=== PATIENT | female | born 1950 | race Caucasian/White ===

== ENCOUNTER → 2019-06-07 10:26 | Outpatient (CLI) | payer MEDICARE, OTHER, SELFPAY ==
--- NOTE | 2019-06-07 | DI.MG.S_ITS ---
BILATERAL DIGITAL SCREENING MAMMOGRAM 3D/2D WITH CAD: 06/07/2019 CLINICAL: Routine screening. Family history of breast cancer. Comparison is made to exams dated: 06/10/2017 mammogram, 03/10/2016 mammogram - [facility], and 03/13/2015 mammogram - [facility]. The tissue of both breasts is extremely dense, which lowers the sensitivity of mammography. Current study was also evaluated with a Computer Aided Detection (CAD) system. No significant masses, calcifications, or other findings are seen in either breast. There has been no significant interval change. IMPRESSION: NEGATIVE There is no mammographic evidence of malignancy. A 1 year screening mammogram is recommended. This exam was interpreted at Station ID: [id number]. NOTE: For mammograms, a report in lay terms will be sent to the patient. Approximately 15% of breast malignancies will not be visualized mammographically. In the management of a palpable breast mass, a negative mammogram must not discourage biopsy of a clinically suspicious lesion. Electronically Signed By: Anirudh william/jaimie:06/07/2019 17:42:08 letter sent: Normal Exam ACR BI-RADS Category 1: Negative [id number]
--- NOTE | 2019-06-07 | DI.RAD.S_ITS ---
PROCEDURE: XR CERVICAL SPINE 2V OR 3V INDICATIONS: PARESTHESIA OF BOTH HANDS TECHNIQUE: 4 view(s) of the cervical spine were acquired. COMPARISON: None. FINDINGS: Bones: No fractures or dislocations to the C7 level. The lateral masses of C1 appear intact on the odontoid view. No suspicious bony lesions. Straightening of the normal lordotic curvature. Multilevel degenerative endplate sclerosis and spurring. Diffuse facet arthropathy. Severe narrowing of the C4-C5 and C5-C6, C6-C7 disc spaces. Soft tissues: No prevertebral soft tissue swelling. IMPRESSION: Severe cervical spondylosis and facet arthropathy as above. Straightening of the normal lordotic curvature. Dictated by: Sami Nogueira M.D. on 06/07/2019 at 13:05 Approved by: Sami Nogueira M.D. on 06/07/2019 at 13:28
== END ==
PROVIDERS: Family Provider Orthopaedic Surgery; PCP Family Medicine; Visit Provider Family Medicine
DX: Z12.31 Encounter for screening mammogram for malignant neoplasm of breast (principal); Z80.3 Family history of malignant neoplasm of breast; M47.812 Spondylosis without myelopathy or radiculopathy, cervical region; M79.641 Pain in right hand; M79.642 Pain in left hand; R20.2 Paresthesia of skin
CPT/HCPCS: 72040; 77063; 77067

== ENCOUNTER → 2019-06-22 10:21 | Outpatient (CLI) | payer MEDICARE, OTHER, SELFPAY ==
--- NOTE | 2019-06-22 | DI.MRI.S_ITS ---
PROCEDURE: MR CERVICAL SPINE WO CON INDICATIONS: PAIN IN RIGHT HAND TECHNIQUE: Noncontrast sagittal T1 spin echo and T2 fast spin echo, sagittal STIR, foraminal oblique sagittal T2 fast spin echo, and axial gradient echo or T2 fast spin echo through the cervical spine. COMPARISON: [facility], CR, XR CERVICAL SPINE 2V OR 3V, 06/07/2019, 10:37. FINDINGS: Image quality: Partially degraded by motion artifact. Alignment and Curvature: There is loss of normal cervical lordosis. There is mild kyphosis at C4-C6. There is mild grade 1 retrolisthesis of C5 on C6 and C6 on C7. Bone Marrow: Marrow demonstrates normal overall signal. Mild reactive signal within the endplates adjacent to the C4-C5, C5-C6, and C6-C7 intervertebral discs. Spinal Cord: Visualized spinal cord has normal size and signal. No cerebellar tonsillar herniation. Paraspinous Soft Tissues: No paravertebral masses. Prevertebral soft tissues are normal in thickness. C2-C3: Moderate disc desiccation. Bilateral facet hypertrophy. Mild canal stenosis. Mild bilateral foraminal stenosis. C3-C4: Moderate disc desiccation. Mild diffuse disc bulge. Mild facet and uncovertebral hypertrophy bilaterally. Mild canal stenosis. Moderate bilateral foraminal stenosis. C4-C5: Moderate disc height loss and desiccation. Moderate diffuse disc bulge/osteophyte. Moderate facet and uncovertebral hypertrophy bilaterally. Severe canal stenosis. Mild cord flattening. Moderate right and severe left foraminal stenosis. Left C5 nerve root compression. C5-C6: Moderate disc height loss and desiccation. Moderate diffuse disc bulge/osteophyte. Moderate facet and uncovertebral hypertrophy bilaterally. Severe canal stenosis. Mild cord flattening. Severe bilateral foraminal stenosis with bilateral C6 nerve root compression. C6-C7: Moderate disc height loss and desiccation. Moderate diffuse disc bulge. Moderate facet and uncovertebral hypertrophy bilaterally. Moderate canal stenosis. Severe left and moderate right foraminal stenosis. Left C7 nerve root compression. C7-T1: Mild disc height loss and desiccation. Mild diffuse disc bulge. Mild facet and uncovertebral hypertrophy bilaterally. Mild canal stenosis. Moderate left and mild right foraminal stenosis. IMPRESSION: 1. Multilevel degenerative disc and facet disease, as well as uncovertebral hypertrophy. 2. Multilevel canal stenoses, worst at C4-C5 and C5-C6, where there is cord flattening present. 3. Multilevel foraminal stenoses, worst at C4-C5, C5-C6, and C6-C7, where there is associated intraforaminal nerve root compression. Recommend correlation with clinical symptoms to ascertain relevance of these findings. Dictated by: Leticia Longoria M.D. on 06/22/2019 at 11:42 Approved by: Leticia Longoria M.D. on 06/22/2019 at 11:47
[2019-06-22 12:58] LABS: Erythrocyte Sedimentation Rate 9 MM/HR (0-20)
[2019-06-25 11:28] LABS: CCP Antibody (IgG) < 16 Units (< 20)
[2019-06-26 15:00] LABS: ANA Pattern NUCLEAR, HOMOGENEOUS; ANA Screen, IFA POSITIVE (NEGATIVE)
== END ==
PROVIDERS: Family Provider Family Medicine; PCP Family Medicine; Visit Provider Orthopaedic Surgery
DX: M79.641 Pain in right hand (principal); M50.11 Cervical disc disorder with radiculopathy, high cervical region; M48.02 Spinal stenosis, cervical region
CPT/HCPCS: 36415; 72141; 85651; 86038; 86200